=== PATIENT | female | born 1985 | race Hispanic/Latino ===

== ENCOUNTER 2018-09-05 11:51 | Day surgery (SDC) | payer MEDICAID ==
[~2018-09-05 11:51] MED LIST: LACTATED RINGERS 1,000 ML IV SCH
[2018-09-05] MEDS ORDERED: SILVER NITRATE TP ONE (13:11)
[2018-09-05] MEDS ORDERED: SUBLIMAZE ONE (13:55)
[2018-09-05] MEDS ORDERED: VERSED ONE ×2 (13:55→14:26)
[2018-09-05] MEDS ORDERED: DIPRIVAN 10 MG/ML IV ONE (13:55)
[2018-09-05 13:57] LABS: Basophils # (Auto) 0.1 K/mm3 (0.0-0.1); Basophils % (Auto) 1.3 % (0.0-1.8); Eosinophils % (Auto) 0.6 % (0.0-4.3); Hematocrit 34.3 % (30.3-42.9); Hemoglobin 11.9 gm/dl (10.1-14.3); Lymphocytes # (Auto) 1.4 K/mm3 (1.2-5.4); Lymphocytes % (Auto) 30.8 % (13.4-35.0); Mean Corpuscular HGB Conc 35 % (30-34); Mean Corpuscular Volume 108 fl (79-97); Monocytes # (Auto) 0.4 K/mm3 (0.0-0.8); Monocytes % (Auto) 8.2 % (0.0-7.3); Platelet Count 211 K/mm3 (140-440); Red Blood Count 3.18 M/mm3 (3.65-5.03)
--- NOTE | 2018-09-05 14:06 | Anesthesia Day of Surgery ---
Anesthesia Day of Surgery - Day of Surgery Patient Examined: Yes Patient H&P Reviewed: Yes Patient is NPO: Yes Beta Blockers: No Cardiac Clearance: No Pulmonary Clearance: No Eusebio's Test: Negative
--- NOTE | 2018-09-05 14:08 | Anesthesia Consultation ---
Anesthesia Consult and Med Hx Date of service: 09/05/18 - Airway Anesthetic Teeth Evaluation: Good ROM Head & Neck: Adequate Mental/Hyoid Distance: Adequate Mallampati Class: Class II Intubation Access Assessment: Good - Pulmonary Exam CTA: Yes - Cardiac Exam Cardiac Exam: RRR - Pre-Operative Health Status ASA Pre-Surgery Classification: ASA1 Proposed Anesthetic Plan: General - Pulmonary Hx Smoking: No Hx Asthma: No SOB: No Hx Pneumonia: No Hx Sleep Apnea: No - Cardiovascular System Hx Hypertension: No Hx Coronary Artery Disease: No - Central Nervous System Hx Psychiatric Problems: No - Endocrine Hx Renal Disease: No Hx End Stage Renal Disease: No Hx Insulin Dependent Diabetes: No Hx Non-Insulin Dependent Diabetes: No Hx Hypothyroidism: No Hx Hyperthyroidism: No - Other Systems Hx Alcohol Use: Yes (Liquor daily) Hx Cancer: No - Additional Comments Anesthesia Medical History Comments: when patient was 6 years old, she states experienced wake-up during anesthesia - likely recall/emergence delirium and cites this as her biggest fear towards anesthesia. otherwise previous anesthetics as an adult including cholescetomy was uneventful
[2018-09-05] MEDS ORDERED: ZOFRAN IV PRN (14:09)
[2018-09-05] MEDS ORDERED: DILAUDID IV PRN (14:09)
[2018-09-05] MEDS ORDERED: TORADOL IV PRN (14:09)
[2018-09-05] MEDS ORDERED: NARCAN 0.4 MG/1 ML IV PRN (14:09)
[2018-09-05] MEDS ORDERED: SUBLIMAZE IV PRN (14:09)
[2018-09-05] MEDS ORDERED: NACL 0.9% IR ONE (14:12)
[2018-09-05] MEDS ORDERED: ROBINUL ONE (14:25)
[2018-09-05] MEDS ORDERED: XYLOCAINE MPF 2% ONE (14:25)
[2018-09-05] MEDS ORDERED: ZOFRAN ONE (14:25)
[2018-09-05] MEDS ORDERED: DECADRON ONE (14:25)
[2018-09-05 15:05] VITALS: BP 127/92
--- NOTE | 2018-09-14 12:26 | Operative Report ---
Operative Report Operative Report: Preoperative diagnosis: 1. Abnormal uterine bleeding. 2. Retained IUD. Postoperative diagnosis: same as preoperative diagnosis. Procedure: 1. Hysteroscopy. 2. D&C. 3. IUD removal Surgeon: Dr. Scott Cylinder Machine Operator Pulp Drier: none Anesthesia: IV sedation with MAC. EBL: minimal IVF: RL 1 liter Complications: none Procedure details: The risks, benefits, and alternatives of the procedure were discussed in detail with the patient which included but not limited to infection, hemorrhage requiring a, and uterine perforation. The patient expressed understanding, her questions answered, and she gave informed consent. The patient was taken to the operating room with an IVF infusing Ringer's lactate. In the operating room, she was placed in the dorsal supine position and given IV sedation with MAC. Then, she was placed on the stirrups in a dorsal lithotomy position. The perineum vagina and cervix were washed and she was prepared and draped in the usual sterile fashion. Examination under anesthesia revealed normal external genitalia and vagina. The cervix was closed, long, posterior with mild bleeding at the os. The uterus was anteverted, mobile, the adnexae were nonpalpable. A weighted speculum was placed placed on the posterior vaginal wall. The anterior lip of the cervix was grasped with a single-tooth tenaculum. Endocervical curettage was done. The cervical os was dilated and the hysteroscope was introduced into the uterine cavity. It revealed thickened endometrial lining and the IUD lodged in the upper uterine cavity. The ostia were not visualized. Forceps were used to remove the IUD intact under hysterescopic guidance. The hysteroscope was removed from the uterine cavity. A gentle curettage was performed until a gritty texture was noticed. The specimen which consisted of ECC and EMC was sent to pathology. The instruments were removed from the cervix and vagina. The count of laps, needles, sponges, and instrument were correct 2. The patient tolerated the procedure well. She was awakened from the anesthesia and taken to the recovery room in a stable condition.
== END 2018-09-05 16:10 | disposition home or self-care (01) ==
LOC: OR 11:51
PROVIDERS: ATTEND Obstetrics & Gynecology
DX: T83.39XA Other mechanical complication of intrauterine contraceptive device, initial encounter (principal); N93.8 Other specified abnormal uterine and vaginal bleeding; Z88.8 Allergy status to other drugs, medicaments and biological substances; Z90.49 Acquired absence of other specified parts of digestive tract; Z98.891 History of uterine scar from previous surgery; Z72.89 Other problems related to lifestyle; Z98.890 Other specified postprocedural states; Y83.8 Other surgical procedures as the cause of abnormal reaction of the patient, or of later complication, without mention of misadventure at the time of the procedure; Y92.89 Other specified places as the place of occurrence of the external cause
CPT/HCPCS: 36415; 58562; 81025; 85025; 88305; J1100; J2250; J2405; J2704; J3010; J7120

== ENCOUNTER 2021-06-16 20:01 | Emergency (ER) | payer SELFPAY ==
[2021-06-16 20:32] VITALS: BP 112/71
--- NOTE | 2021-06-17 03:59 | Emergency Department Report ---
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 Patient states cough productive thick clear. Generalized malaise patient denies fever there is no nausea no vomiting no chest pain. Patient advises she is Covid vaccinated. 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 States she needs medical clearance to return to work. Patient is currently tolerating p.o. intake without nausea or vomiting. Patient denies shortness of breath, there is no chest pain. Last menstrual cycle 2 weeks ago. Patient denies history of hypertension no diabetes no asthma no bronchitis. Patient denies other symptoms. - Related Data Home Medications Medication Instructions Recorded Confirmed Last Taken No Known Home Medications [No 08/28/18 08/28/18 Unknown Reported Home Medications] Allergies Allergy/AdvReac Type Severity Reaction Status Date / Time erythromycin base Allergy Rash Verified 08/28/18 12:32 ED Review of Systems ROS: Stated complaint: DIZZY Other details as noted in HPI Constitutional: chills, malaise Eyes: denies: eye pain, eye discharge, vision change ENT: congestion. denies: ear pain, throat pain Respiratory: cough. denies: shortness of breath, wheezing Cardiovascular: denies: chest pain, palpitations Endocrine: no symptoms reported Gastrointestinal: denies: abdominal pain, nausea, vomiting, diarrhea Genitourinary: denies: urgency, dysuria, frequency, hematuria, discharge Musculoskeletal: denies: back pain, joint swelling, arthralgia Skin: denies: rash, lesions Neurological: denies: headache, weakness, numbness, paresthesias, confusion, vertigo Psychiatric: denies: anxiety, depression Hematological/Lymphatic: denies: easy bleeding, easy bruising ED Past Medical Hx - Past Medical History Hx Hypertension: No Hx Renal Disease: No Hx Asthma: No - Surgical History Hx Cholecystectomy: Yes - Social History Smoking Status: Never Smoker - Medications Home Medications: Home Medications Medication Instructions Recorded Confirmed Last Taken Type No Known Home Medications [No 08/28/18 08/28/18 Unknown History Reported Home Medications] ED Physical Exam - General Limitations: No Limitations General appearance: alert, in no apparent distress - Head Head exam: Present: normocephalic, normal inspection - Eye Eye exam: Present: normal appearance, PERRL, EOMI Pupils: Present: normal accommodation - ENT ENT exam: Present: normal orophraynx, mucous membranes moist, TM's normal bilaterally, normal external ear exam - Neck Neck exam: Present: normal inspection, full ROM. Absent: tenderness, meningismus, lymphadenopathy, thyromegaly - Respiratory Respiratory exam: Present: normal lung sounds bilaterally. Absent: respiratory distress, wheezes, rales, rhonchi, stridor, chest wall tenderness - Cardiovascular Cardiovascular Exam: Present: regular rate, normal rhythm, normal heart sounds - GI/Abdominal GI/Abdominal exam: Present: soft, normal bowel sounds. Absent: distended, tenderness, guarding, rebound, rigid, bruit, hernia - Rectal Rectal exam: Present: deferred - Extremities Exam Extremities exam: Present: normal inspection, full ROM, normal capillary refill. Absent: tenderness - Back Exam Back exam: Present: normal inspection, full ROM. Absent: CVA tenderness (R), CVA tenderness (L) - Neurological Exam Neurological exam: Present: alert, oriented X3, CN II-XII intact, normal gait - Expanded Neurological Exam Expanded Patient oriented to: Present: person, place, time Speech: Present: fluid speech Motor strength exam: RUE: 5, LUE: 5, RLE: 5, LLE: 5 Best Eye Response ([place]): (4) open spontaneously Best Motor Response (Janee): (6) obeys commands Best Verbal Response ([place]): (5) oriented Janee Total: 15 - Psychiatric Psychiatric exam: Present: normal affect, normal mood - Skin Skin exam: Present: warm, dry, intact, normal color. Absent: rash ED Course Vital Signs 06/16/21 20:30 Temperature 98.7 F Pulse Rate 84 Respiratory 20 Rate Blood Pressure 112/71 O2 Sat by Pulse 99 Oximetry ED Medical Decision Making - Radiology Data Radiology results: report reviewed, image reviewed CHEST 2 VIEWS INDICATION / CLINICAL INFORMATION: dizziness. COMPARISON: None available. FINDINGS: SUPPORT DEVICES: None. HEART / MEDIASTINUM: No significant abnormality. LUNGS / PLEURA: No significant pulmonary or pleural abnormality. No pneumothorax. ADDITIONAL FINDINGS: No significant additional findings. IMPRESSION: 1. No active cardiopulmonary disease. Signer Name: Beti Fernández II, MD Signed: 06/17/2021 4:13 AM Workstation Name: [id number] Transcribed By: ZENIA Dictated By: BETI FERNÁNDEZ II, MD Electronically Authenticated By: BETI FERNÁNDEZ II, MD Signed Date/Time: 06/17/21412 DD/ 2 TD/TT: Print - Medical Decision Making X-ray normal no opacities no infiltrates. Plan DC to home [id number] NSAIDs as needed for aches and pains. Hydrate as directed. This is a URI. Discussed same with patient patient verbalized agreement and understanding with same patient is currently tolerating p.o. intake there is no nausea no vomiting. There has been no fever. Sounds are clear throughout there is no wheezing no stridor. Patient alert oriented x3 amatory steady gait patient is DC to home in stable condition at this time. Critical care attestation.: If time is entered above; I have spent that time in minutes in the direct care of this critically ill patient, excluding procedure time. ED Disposition Clinical Impression: URI (upper respiratory infection) Qualifiers: URI type: unspecified URI Qualified Code(s): J06.9 - Acute upper respiratory infection, unspecified Disposition: 01 HOME / SELF CARE / HOMELESS Is pt being admited?: No Does the pt Need Aspirin: No Condition: Stable Instructions: Viral Respiratory Infection Additional Instructions: Take qofk-emj-jumviuk cold medicines as directed. Hydrate as directed. Follow- up with your doctor in 2 to 3 days. Referrals: PHIL ESPINAL MD [Staff Physician] - 3-5 Days Forms: Work/School Release Form(ED) Time of Disposition: 06:00
--- NOTE | 2021-06-17 04:18 | XRay Report ---
CHEST 2 VIEWS INDICATION / CLINICAL INFORMATION: dizziness. COMPARISON: None available. FINDINGS: SUPPORT DEVICES: None. HEART / MEDIASTINUM: No significant abnormality. LUNGS / PLEURA: No significant pulmonary or pleural abnormality. No pneumothorax. ADDITIONAL FINDINGS: No significant additional findings. IMPRESSION: 1. No active cardiopulmonary disease. Signer Name: Arnel Fernández II, MD Signed: 06/17/2021 4:13 AM Workstation Name: [id number]
--- NOTE | 2021-06-17 09:22 | Electrocardiograph Report ---
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
== END 2021-06-17 06:13 | disposition home or self-care (01) ==
LOC: ED 20:01
DX: J06.9 Acute upper respiratory infection, unspecified (principal); Z90.49 Acquired absence of other specified parts of digestive tract; Z88.1 Allergy status to other antibiotic agents
CPT/HCPCS: 71046; 93005; 99283